=== PATIENT | female | born 1960 | race Caucasian/White ===

== ENCOUNTER → 2023-05-20 06:30 | Day surgery (SDC) | payer OTHER, SELFPAY | LOC: GI 06:30 | PROVIDERS: ATTENDING PHYSICIAN Internal Medicine Gastroenterology | DX: Z12.11 Encounter for screening for malignant neoplasm of colon (principal); D12.3 Benign neoplasm of transverse colon; K57.30 Diverticulosis of large intestine without perforation or abscess without bleeding; K62.89 Other specified diseases of anus and rectum; K64.0 First degree hemorrhoids; K29.50 Unspecified chronic gastritis without bleeding; K22.89 Other specified disease of esophagus; K31.7 Polyp of stomach and duodenum; R13.10 Dysphagia, unspecified; Z87.19 Personal history of other diseases of the digestive system | CPT/HCPCS: 45385; 43239; 88305; 88342 ==

== ENCOUNTER → 2023-05-26 09:38 | Outpatient (REF) | payer OTHER, SELFPAY ==
[2023-05-26 12:56] LABS: Blood Urea Nitrogen 16 mg/dl (7-17); Calcium 9.5 mg/dl (8.4-10.2); Carbon Dioxide 28 mmol/L (22-30); Chloride 101 mmol/L (98-107); Glucose 95 mg/dl (70-99); Potassium 4.6 mmol/L (3.5-5.1); Sodium 138 mmol/L (135-145); eGFR > 60.00
== END ==
LOC: HWLAB 09:38
PROVIDERS: ATTENDING PHYSICIAN Internal Medicine Gastroenterology; FAMILY PHYSICIAN Family Medicine
DX: I85.00 Esophageal varices without bleeding (principal)
CPT/HCPCS: 36415; 80048

== ENCOUNTER → 2023-05-30 11:42 | Outpatient (REF) | payer OTHER, SELFPAY | LOC: HWRAD 11:42 | PROVIDERS: ATTENDING PHYSICIAN Internal Medicine Gastroenterology; FAMILY PHYSICIAN Family Medicine | DX: I85.00 Esophageal varices without bleeding (principal) | CPT/HCPCS: 71270; Q9967 ==

== ENCOUNTER → 2023-06-01 09:49 | Outpatient (REF) | payer OTHER, SELFPAY ==
[2023-06-01 13:08] LABS: % Basophils 0.7 % (0-2); % Eosinophils 2.3 % (0-6); % Immature Granulocytes 0.2 % (0-0.5); % Lymphocytes 34.3 % (20.5-51.1); % Monocytes 6.5 % (1.7-9.3); Absolute Eosinophils 0.1 10^3/uL (0-0.7); Absolute Lymphocytes 1.9 10^3/uL (1.2-3.4); Absolute Monocytes 0.4 10^3/uL (0.1-0.6); Absolute Neutrophils 3.1 10^3/uL (1.4-6.5); Hematocrit 41.7 % (37.0-47.0); Hemoglobin 14.5 g/dL (12.0-16.0); Mean Corp Hgb Conc. 34.8 g/dL (33.0-37.0); Mean Corpuscular Hgb 31.7 pg (27.0-31.0); Mean Platelet Volume 10.5 fL (7.4-10.4); Nucleated Red Blood Cells % 0 %; Platelet Count 303 10^3/uL (130-400); Red Blood Cell Count 4.58 10^6/uL (4.20-5.40); White Blood Cell Count 5.5 10^3/uL (4.8-10.8)
[2023-06-01 13:45] LABS: ALT (SGPT) 24 U/L (0-35); AST (SGOT) 32 U/L (14-36); Albumin 4.4 g/dl (3.5-5.0); Alkaline Phosphatase 97 U/L (38-126); Blood Urea Nitrogen 14 mg/dl (7-17); Calcium 9.1 mg/dl (8.4-10.2); Carbon Dioxide 24 mmol/L (22-30); Chloride 106 mmol/L (98-107); Direct Bilirubin 0.1 mg/dl (0.0-0.4); Glucose 94 mg/dl (70-99); Iron 116 ug/dl (37-170); Potassium 4.1 mmol/L (3.5-5.1); Sodium 138 mmol/L (135-145); Total Protein 7.1 g/dl (6.3-8.2); eGFR > 60.00
[2023-06-01 13:54] LABS: Percent Saturation 34 % (20-50); Total Iron Binding Capacity 340 ug/dl (265-497)
[2023-06-01 14:22] LABS: Ferritin 34.7 ng/ml (11.1-264.0)
[2023-06-02 00:50] LABS: IgA 320 mg/dl (70-400); IgG 1041 mg/dl (700-1600); IgM 71 mg/dl (40-230)
[2023-06-02 21:43] LABS: Hepatitis B Surface Antigen Negative (Negative)
[2023-06-02 22:01] LABS: Hepatitis B Core Ab, Total Negative (Negative); Hepatitis B Surface Antibody Negative; Hepatitis C Antibody Negative (Negative)
[2023-06-02 22:59] LABS: Hepatitis A Antibody, Total Negative (Negative)
[2023-06-03 21:00] LABS: Alpha-1-Antitrypsin 78 mg/dL (90-200); Ceruloplasmin 21 mg/dL (16-45)
[2023-06-03 22:36] LABS: LKM-1 Ab (IgG) 2.4 U (0.0-24.9)
[2023-06-04 03:45] LABS: F-Actin Antibody IgG 11 Units (0-19); Mitochondrial M2 Ab, IgG 4.7 Units (0.0-24.9)
[2023-06-08 14:09] LABS: tTG IgA Antibody 10.8 EU/ml (0-19)
== END ==
LOC: HWLAB 09:49
PROVIDERS: ATTENDING PHYSICIAN Internal Medicine Gastroenterology; FAMILY PHYSICIAN Family Medicine
DX: K76.0 Fatty (change of) liver, not elsewhere classified (principal)
CPT/HCPCS: 36415; 80048; 80076; 82103; 82390; 82728; 82784; 83516; 83540; 83550; 85025; 86015; 86376; 86381; 86704; 86706; 86708; 86803; 87340

== ENCOUNTER → 2023-07-12 | Outpatient (REF) | payer OTHER, SELFPAY | LOC: DHSLP | PROVIDERS: ATTENDING PHYSICIAN Internal Medicine Critical Care Medicine; FAMILY PHYSICIAN Family Medicine | DX: G47.33 Obstructive sleep apnea (adult) (pediatric) (principal) | CPT/HCPCS: 95800 ==

== ENCOUNTER → 2024-04-17 09:19 | Outpatient (REF) | payer OTHER, SELFPAY | LOC: HWRAD 09:19 | PROVIDERS: ATTENDING PHYSICIAN Nurse Practitioner Family; FAMILY PHYSICIAN Family Medicine | DX: R10.815 Periumbilic abdominal tenderness (principal) | CPT/HCPCS: 76705 ==

== ENCOUNTER → 2024-07-23 14:40 | Outpatient (REF) | payer OTHER, SELFPAY | LOC: HWRAD 14:40 | PROVIDERS: ATTENDING PHYSICIAN Internal Medicine Gastroenterology; FAMILY PHYSICIAN Family Medicine | DX: R10.13 Epigastric pain (principal) | CPT/HCPCS: 76700 ==

== ENCOUNTER → 2024-10-30 11:47 | Outpatient (REF) | payer OTHER, SELFPAY ==
[2024-10-30 15:53] LABS: Hematocrit 42.8 % (37.0-47.0); Hemoglobin 14.4 g/dL (12.0-16.0); Mean Corp Hgb Conc. 33.6 g/dL (33.0-37.0); Mean Corpuscular Volume 93.4 fL (81.0-99.0); Nucleated Red Blood Cells % 0 %; Platelet Count 294 10^3/uL (130-400); Red Cell Dist. Width 12.3 % (11.5-14.5)
[2024-10-30 16:25] LABS: ALT (SGPT) 20 U/L (0-35); AST (SGOT) 25 U/L (14-36); Albumin 4.6 g/dl (3.5-5.0); Alkaline Phosphatase 75 U/L (38-126); Total Protein 7.3 g/dl (6.3-8.2)
== END ==
LOC: HWLAB 11:47
PROVIDERS: ATTENDING PHYSICIAN Internal Medicine Gastroenterology; FAMILY PHYSICIAN Family Medicine
DX: K76.0 Fatty (change of) liver, not elsewhere classified (principal)
CPT/HCPCS: 36415; 80076; 85025

== ENCOUNTER → 2024-12-20 11:48 | Outpatient (REF) | payer OTHER, SELFPAY | LOC: HWWDC 11:48 | PROVIDERS: ATTENDING PHYSICIAN Family Medicine; FAMILY PHYSICIAN Family Medicine | DX: Z12.31 Encounter for screening mammogram for malignant neoplasm of breast (principal) | CPT/HCPCS: 77063; 77067 ==